=== PATIENT | male | born 1950 | race Caucasian/White ===

== ENCOUNTER 2017-12-30 19:08 | Inpatient (IN) | payer OTHER ==
[~2017-12-30] VITALS: Ht 177.8 cm; Wt 93.4 kg
[2017-12-30 19:44] LABS: BASOPHIL % 0.4 % (0-2); PLATELET COUNT 191 x10^3mcL (130-400); RED CELL DISTRIBUTION WIDTH 14.1 % (11.5-14.5)
[2017-12-30 19:59] LABS: CALCIUM 8.4 mg/dL (8.5-10.1); CARBON DIOXIDE 29.1 mmol/L (21-32); CHLORIDE SERUM 101 mmol/L (98-107); GFR1 > 60 mL/min; GLUCOSE SERUM 208 mg/dL (74-106); POTASSIUM SERUM 3.7 mmol/L (3.5-5.1); SODIUM SERUM 132 mmol/L (136-145)
[2017-12-30 20:04] LABS: ALBUMIN 3.8 g/dL (3.4-5.0); ALKALINE PHOSPHATASE 75 U/L (46-116); ALT/SGPT 19 U/L (16-63); AST/SGOT 25 U/L (15-37); BILIRUBIN TOTAL 0.61 mg/dL (0.20-1.00); TOTAL PROTEIN, SERUM 7.4 g/dL (6.4-8.2)
[2017-12-30] MEDS ORDERED: LIPITOR40 MG PO (21:47)
[2017-12-30] MEDS ORDERED: LISINOPRIL10 MG PO (21:47)
[2017-12-30] MEDS ORDERED: COUMADIN4 MG PO (21:47)
[2017-12-30 22:15] VITALS: BP 198/88
[2017-12-30 22:17] LABS: CHOLESTEROL/HDL RATIO 2.9; MAGNESIUM 2.2 mg/dL (1.8-2.4)
[2017-12-30 22:22] VITALS: Ht 177.8 cm; Wt 93.4 kg
[2017-12-30 22:54] VITALS: BP 147/82
[2017-12-31 05:27] VITALS: BP 145/68
[2017-12-31 06:51] LABS: BASOPHIL % 0.2 % (0-2); PLATELET COUNT 190 x10^3mcL (130-400); RED CELL DISTRIBUTION WIDTH 13.9 % (11.5-14.5)
[2017-12-31 07:05] LABS: CALCIUM 8.6 mg/dL (8.5-10.1); CARBON DIOXIDE 31.7 mmol/L (21-32); CHLORIDE SERUM 99 mmol/L (98-107); CREATININE SERUM 0.9 mg/dL (0.7-1.3); GFR1 > 60 mL/min; GLUCOSE SERUM 156 mg/dL (74-106); POTASSIUM SERUM 4.8 mmol/L (3.5-5.1); SODIUM SERUM 137 mmol/L (136-145)
[2017-12-31 10:20] VITALS: BP 129/78
[2017-12-31 12:23] VITALS: BP 166/78
[2017-12-31 12:59] LABS: microscopic required? YES; urine erythrocyte NEGATIVE (NEGATIVE)
[2017-12-31 13:07] LABS: AMPHETAMINE QUAL UR NONE DETECTED (See below)
[2017-12-31 17:14] VITALS: BP 173/74
[2017-12-31 21:36] VITALS: BP 133/71
[2018-01-01 06:13] VITALS: BP 173/81
[2018-01-01 09:56] VITALS: BP 136/70
[2018-01-01 12:37] VITALS: BP 182/78
[2018-01-01 13:48] VITALS: BP 190/81
[2018-01-01 17:40] VITALS: BP 157/76
[2018-01-01 21:05] VITALS: BP 128/50
[2018-01-02 04:53] VITALS: BP 134/76
[2018-01-02 09:17] VITALS: BP 124/58
[2018-01-02 10:18] VITALS: BP 124/58
== END 2018-01-02 11:32 | disposition other institution (70) | DRG 303 ==
LOC: ED 19:08 → DU 21:08
PROVIDERS: Emergency Medicine; Internal Medicine
DX: I25.119 Atherosclerotic heart disease of native coronary artery with unspecified angina pectoris (principal); D68.59 Other primary thrombophilia; D68.9 Coagulation defect, unspecified; E11.9 Type 2 diabetes mellitus without complications; I48.91 Unspecified atrial fibrillation; E78.5 Hyperlipidemia, unspecified; I25.2 Old myocardial infarction; Z79.82 Long term (current) use of aspirin; Z79.4 Long term (current) use of insulin; Z68.29 Body mass index [BMI] 29.0-29.9, adult; Z95.1 Presence of aortocoronary bypass graft; Z88.3 Allergy status to other anti-infective agents; Z86.73 Personal history of transient ischemic attack (TIA), and cerebral infarction without residual deficits; E78.00 Pure hypercholesterolemia, unspecified; Z95.5 Presence of coronary angioplasty implant and graft; Z87.891 Personal history of nicotine dependence; I45.10 Unspecified right bundle-branch block; I11.9 Hypertensive heart disease without heart failure; I25.9 Chronic ischemic heart disease, unspecified
CPT/HCPCS: 82962; 83880; A9500; J1885; J2270; J2405; J2550; J2765; J2785; Q0092